=== PATIENT | female | born 1975 | race Two or more races ===

== ENCOUNTER 2017-08-29 16:24 | Emergency (ER) | payer MEDICARE, OTHER ==
[~2017-08-29] VITALS: Ht 162.6 cm; Wt 60.0 kg
[2017-08-29] MEDS ORDERED: PARO10TA87 PO (16:32)
[2017-08-29] MEDS ORDERED: CARI1.5C PO (16:32)
[2017-08-29 20:39] LABS: BASOPHILS % 1.1 % (0.0-2.0); EOSINOPHILS % 2.5 % (0.0-5.0); HEMATOCRIT. 43.5 % (36.0-48.0); HEMOGLOBIN. 15.1 g/dL (12.0-16.0); LYMPHOCYTES % 40.9 % (20.0-50.0); MEAN CORPUSCULAR VOLUME 86.2 fL (81.0-99.0); MONOCYTES % 6.4 % (2.0-8.0); NEUTROPHILS % 49.1 % (40.0-76.0); PLATELET 382 x1000/uL (130-400); RED BLOOD CELL COUNT 5.04 mill/uL (4.2-5.4)
[2017-08-29 20:43] LABS: CHLORIDE 102 mEq/L (98-107)
[2017-08-29 20:48] LABS: HCG SCREEN NEGATIVE
[2017-08-29 21:55] VITALS: BP 123/72
== END 2017-08-29 23:24 | disposition home or self-care (01) ==
LOC: ER 16:40
DX: R42 Dizziness and giddiness (principal); B35.1 Tinea unguium
CPT/HCPCS: 36415; 80053; 84703; 85025; 93005; 99285